=== PATIENT | female | born 1995 | race Caucasian/White ===

== ENCOUNTER 2022-08-30 19:29 | Emergency (ER) | payer BC, SELFPAY ==
[2022-08-30 19:39] VITALS: BP 127/75; PULSE 84; RESP 18; TEMP 36.7; O2SAT 99; BMI 22.6
--- NOTE | 2022-08-30 20:02 | ED_ITS ---
HPI - General Adult General Time Seen by Provider: 20:02 Date Seen: 08/30/22 Chief complaint: Unspecified Complaint, Adult Stated complaint: Light Headed Time Seen by Provider: 08/30/22 20:01 Source: patient and RN notes reviewed Mode of arrival: ambulatory Limitations: no limitations History of Present Illness HPI narrative: 27-year-old female who comes in today with a couple days lightheadedness. She reports feeling consistently lightheaded not related to position or activity, but then also notes she had 2 episodes where she felt like she had a fast heart rate, got little sweaty. Both of these were intact carotid spaces. She denies any associated chest pain, shortness of breath, blurry vision, nausea, vomiting, diarrhea, abdominal pain, weight loss or weight gain. She has not taken anything for her symptoms. Says she has been eating and drinking normally. Related Data Home Medications Medication Instructions Recorded Confirmed No Known Home Medications 08/30/22 08/30/22 Allergies Allergy/AdvReac Type Severity Reaction Status Date / Time No Known Drug Allergies Allergy Verified 08/30/22 19:41 Review of Systems Status of ROS: Reports: 10 or more systems reviewed and unremarkable except as noted in History and below PFSH [facility] Medical History (Updated 08/30/22 @ 21:20 by Indra Leblanc MD) No significant past medical history Surgical History (Updated 08/30/22 @ 19:45 by Khoi Reza RN) No significant past surgical history Social History Smoking Status: Never smoker Second hand tobacco smoke exposure: No How often do you have a drink containing alcohol: never How often do you have six or more drinks on one occasion: Never AUDIT-C Alcohol total score: 0 Non-prescribed substance use: denies use Exam Narrative: Exam Narrative: General: Well-developed and well-nourished, no acute distress Head: Atraumatic and normocephalic Eyes: Pupils are equal reactive, extraocular motions intact, conjunctiva clear ENT: External nose and ears are normal, posterior pharynx without erythema or exudate Neck: No midline cervical tenderness, full spontaneous range of motion the neck, trachea midline, no adenopathy Heart: Regular rate and rhythm no murmurs or thrills Lungs: Clear to auscultation bilaterally without wheezes or crackles Abdomen: Soft, nontender, nondistended with active bowel sounds Musculoskeletal: No tenderness, deformity, or edema Neurologic: Awake, alert, and oriented x3, no gross focal neurologic deficits, cranial nerves intact as tested Psych: Mood and affect are appropriate Skin: No rashes Const: Vital Signs, click to edit/add: Vital Signs - 24 hr 08/30/22 19:39 08/30/22 20:29 08/30/22 20:40 Temperature 98.0 F Pulse Rate [Right Pulse Oximeter] 84 93 Respiratory Rate 18 Blood Pressure [Ri ght Upper Arm] 127/75 Pulse Oximetry 99 99 99 Oxygen Delivery Me thod Room Air Room Air 08/30/22 20:44 Temperature Pulse Rate [Right Pulse Oximeter] 83 Respiratory Rate Blood Pressure [Ri ght Upper Arm] Pulse Oximetry 98 Oxygen Delivery Me thod Room Air Course Course Hospital Course: Patient seen examined, prior records are reviewed. Differential diagnosis includes but not limited to viral syndrome, dehydration, electrolyte disturbance, anemia, dysrhythmia, urinary tract infection, . Patient presents with lightheadedness for couple days, she initially describes this as two individual episodes of palpitations, lightheadedness, and shakiness but then says is been more consistent she had 2 episodes of palpitations. On exam here, vehicle monitor technician demonstrates sinus rhythm, no focal findings on exam and no heart murmurs or extrasystoles. EKG is reassuring, labs and IV fluids are ordered. Reevaluation(s) Reevaluation #1: Labs ordered and reviewed by me are reassuring. She does have a mild lymphocytosis but white blood cell normal, hemoglobin is normal. Basic panel reassuring, troponin negative. Urinalysis with 2+ blood but otherwise reassuring. Patient is stable for discharge. Follow-up with primary care this week, if continued intermittent palpitations, consider Holter monitor. Time: 21:20 Vital Signs Vital signs: Initial Vital Signs Temperature 98.0 F 08/30/22 19:39 Temperature Source Temporal Artery Scan 08/30/22 19:39 Pulse Rate 84 08/30/22 19:39 Respiratory Rate 18 08/30/22 19:39 Blood Pressure 127/75 08/30/22 19:39 Blood Pressure Mean 92 08/30/22 19:39 Blood Pressure Position Sitting 08/30/22 19:39 Pulse Oximetry 99 08/30/22 19:39 Oxygen Delivery Method 08/30/22 19:39 Vital Signs Temperature 98.0 F 08/30/22 19:39 Pulse Rate 84 08/30/22 19:39 Respiratory Rate 18 08/30/22 19:39 Blood Pressure 127/75 08/30/22 19:39 Pulse Oximetry 99 08/30/22 19:39 Oxygen Delivery Method 08/30/22 19:39 Temperature 98.0 F 08/30/22 19:39 Pulse Rate 83 08/30/22 20:44 Respiratory Rate 18 08/30/22 19:39 Blood Pressure 127/75 08/30/22 19:39 Pulse Oximetry 98 08/30/22 20:44 Oxygen Delivery Method 08/30/22 20:44 Medical Decision Making Medical Records Medical records reviewed: Yes I reviewed the patient's medical records Lab Data Lab results reviewed: Yes I reviewed the patient's lab results Labs: Lab Results 08/30/22 08/30/22 08/30/22 Range/Units 20:08 20:08 20:08 WBC 5.89 (4.50-11.00) K/uL RBC 5.16 (4.00-5.20) m/uL Hgb 15.2 (12.0-16.0) gm/dL Hct 44.7 (33.0-51.0) % MCV 87 (80-100) fL MCH 30 (26-34) pg MCHC 34 (32-36) gm/dL RDW Coeff of [place] 12.5 (11.5-15.5) % Plt Count 180 (140-440) K/uL Neut % (Auto) 37.9 L (42.0-72.0) % Lymph % (Auto) 48.2 H (20-44) % [place] % (Auto) 10.7 (0.0-11.0) % Eos % (Auto) 2.5 (0.0-7.0) % Baso % (Auto) 0.7 (0.0-3.0) % Neut # (Auto) 2.20 (1.7-7.0) K/uL Lymph # (Auto) 2.80 (0.90-2.90) K/uL [place] # (Auto) 0.60 (0.00-0.90) K/UL Eos # (Auto) 0.15 (0.00-0.50) K/uL Baso # (Auto) 0.04 (0.00-0.30) K/uL Abs Immat Gran (auto) 0.00 (0.00-0.30) K/uL Imm/Tot Granulo (auto) 0.0 % Sodium 141 (135-149) mmol/L Potassium 3.6 (3.6-5.1) mmol/L Chloride 106 (96-114) mmol/L Carbon Dioxide 26 (20-32) mmol/L BUN 11 (5-24) mg/dL Creatinine 0.6 (0.5-1.5) mg/dL Estimated Creat Clear 134.18 Estimated GFR 128 ml/min Glucose 102 (60-115) mg/dL Calcium 9.4 (8.4-10.6) mg/dL Urine Color (Yellow) Urine Appearance (Clear) Urine pH (5.0-8.5) Ur Specific [place] (1.000-1.030) Urine Protein (Negative) Urine Glucose (UA) (Negative) Urine Ketones (Negative) Urine Blood (Negative) Urine Nitrite (Negative) Urine Bilirubin (Negative) Urine Urobilinogen (0.2-1.0) Ur Leukocyte Esterase (Negative) POC Troponin I 0.00 L (0.01-0.04) ng/ml 08/30/22 Range/Units 20:20 WBC (4.50-11.00) K/uL RBC (4.00-5.20) m/uL Hgb (12.0-16.0) gm/dL Hct (33.0-51.0) % MCV (80-100) fL MCH (26-34) pg MCHC (32-36) gm/dL RDW Coeff of [place] (11.5-15.5) % Plt Count (140-440) K/uL Neut % (Auto) (42.0-72.0) % Lymph % (Auto) (20-44) % [place] % (Auto) (0.0-11.0) % Eos % (Auto) (0.0-7.0) % Baso % (Auto) (0.0-3.0) % Neut # (Auto) (1.7-7.0) K/uL Lymph # (Auto) (0.90-2.90) K/uL [place] # (Auto) (0.00-0.90) K/UL Eos # (Auto) (0.00-0.50) K/uL Baso # (Auto) (0.00-0.30) K/uL Abs Immat Gran (auto) (0.00-0.30) K/uL Imm/Tot Granulo (auto) % Sodium (135-149) mmol/L Potassium (3.6-5.1) mmol/L Chloride (96-114) mmol/L Carbon Dioxide (20-32) mmol/L BUN (5-24) mg/dL Creatinine (0.5-1.5) mg/dL Estimated Creat Clear Estimated GFR ml/min Glucose (60-115) mg/dL Calcium (8.4-10.6) mg/dL Urine Color Yellow (Yellow) Urine Appearance Clear (Clear) Urine pH 6.5 (5.0-8.5) Ur Specific [place] 1.015 (1.000-1.030) Urine Protein Negative (Negative) Urine Glucose (UA) Negative (Negative) Urine Ketones Negative (Negative) Urine Blood 2+ A (Negative) Urine Nitrite Negative (Negative) Urine Bilirubin Negative (Negative) Urine Urobilinogen 0.2 (0.2-1.0) Ur Leukocyte Esterase Negative (Negative) POC Troponin I (0.01-0.04) ng/ml ECG Data Attestation: I personally reviewed and interpreted this ECG as follows: Prior ECG tracings: not available for review Interpretation: Performed at 7:49 p.m. demonstrates sinus rhythm rate 78, no acute ST elevations or depressions, normal intervals, normal axis, NC 146, QTC 424. No prior for comparison. Discharge Plan Discharge Clinical Impression: Light-headedness Patient Disposition: Home, Self-Care Condition: Stable Activity Level: No Restrictions Activity Detail: Activity as tolerated. Follow-up with your primary care doctor this week. Discharge Diet: Regular Prescriptions: No Action No Known Home Medications Stand Alone Forms: orderbolt Info Instructions
[2022-08-30 20:20] LABS: Basophils Absolute Auto 0.04 K/uL (0.00-0.30); Basophils Percent Auto 0.7 % (0.0-3.0); Eosinophils Absolute Auto 0.15 K/uL (0.00-0.50); Eosinophils Percent Auto 2.5 % (0.0-7.0); Hematocrit 44.7 % (33.0-51.0); Hemoglobin* 15.2 gm/dL (12.0-16.0); Lymphocytes Percent Auto 48.2 % (20-44); Mean Corpuscular HGB Conc 34 gm/dL (32-36); Mean Corpuscular Hemoglobin 30 pg (26-34); Mean Corpuscular Volume 87 fL (80-100); Monocytes Percent Auto 10.7 % (0.0-11.0); Neutrophils Percent Auto 37.9 % (42.0-72.0); Platelet Count* 180 K/uL (140-440); RDW Coefficient of Variation % 12.5 % (11.5-15.5); Red Blood Count 5.16 m/uL (4.00-5.20); White Blood Count* 5.89 K/uL (4.50-11.00)
[2022-08-30 20:23] LABS: Slide Review Reflex No
[2022-08-30 20:29] VITALS: PULSE 93; O2SAT 99
[2022-08-30] MEDS: 0.9 % SODIUM CHLORIDE 1000 ml 1,000 ML IV (20:29)
[2022-08-30 20:33] LABS: Appearance Urine Clear (Clear); Bilirubin Urine Negative (Negative); Blood Urine 2+ (Negative); Color Urine Yellow (Yellow); Glucose Urine Negative (Negative); Ketones Urine Negative (Negative); Leukocyte Esterase Urine Negative (Negative); Nitrite Urine Negative (Negative); Protein Urine Negative (Negative); Specific Gravity Urine 1.015 (1.000-1.030); Urobilinogen Urine 0.2 (0.2-1.0); pH Urine 6.5 (5.0-8.5)
[2022-08-30 20:36] LABS: Chloride* 106 mmol/L (96-114); Potassium* 3.6 mmol/L (3.6-5.1); Sodium* 141 mmol/L (135-149)
[2022-08-30 20:38] LABS: Creatinine* 0.6 mg/dL (0.5-1.5); Est. Creatinine Clearance* 134.18; Estimated Glomerular Filt Rate 128 ml/min
[2022-08-30 20:39] LABS: Blood Urea Nitrogen* 11 mg/dL (5-24); Calcium* 9.4 mg/dL (8.4-10.6); Carbon Dioxide* 26 mmol/L (20-32); Glucose* 102 mg/dL (60-115)
[2022-08-30 20:40] VITALS: O2SAT 99
[2022-08-30 20:44] VITALS: PULSE 83; O2SAT 98
[2022-08-30 21:24] LABS: WBC Urine 0-2 (0-5)
[2022-08-30 21:32] VITALS: BP 127/75; PULSE 83; RESP 18; TEMP 36.7
== END 2022-08-30 21:51 | disposition home or self-care (01) ==
PROVIDERS: Emergency Provider Family Medicine
DX: R42 Dizziness and giddiness (principal)
CPT/HCPCS: 36415; 80048; 81001; 84484; 85025; 93005; 94761; 99284; J7030

== ENCOUNTER 2022-11-06 15:49 | Outpatient (CLI) | payer BC, SELFPAY | END 2022-11-06 15:50 | disposition home or self-care (01) | PROVIDERS: Visit Provider Nurse Practitioner Family | DX: R00.0 Tachycardia, unspecified (principal); N39.0 Urinary tract infection, site not specified | CPT/HCPCS: 84443; 87086 ==